=== PATIENT | male | born 1980 | race Caucasian/White ===

== ENCOUNTER 2023-05-15 09:23 | Inpatient (IN) | payer BC ==
[2023-05-12 14:34] VITALS: BMI 38.7
[2023-05-15] MEDS ORDERED: MIDAZOLAM HCL 2 MG/2 ML SINGLE DOSE VIAL ONE (10:34)
[2023-05-15] MEDS ORDERED: BUPIVACAINE HCL/PF 2.5 MG/ML - 30 ML VIAL IJ ONE (10:34)
[2023-05-15] MEDS ORDERED: SUCCINYLCHOLINE CHLORIDE 200 MG/10 ML SYRINGE ONE (10:34)
[2023-05-15] MEDS ORDERED: ROCURONIUM BROMIDE 50 MG/5 ML SYRINGE ONE ×2 (10:34→12:27)
[2023-05-15] MEDS ORDERED: PROPOFOL 40 ML ONE (10:34)
[2023-05-15] MEDS ORDERED: DEXAMETHASONE SOD PHOSPHATE/PF 10 MG/ML SDV ONE (10:45)
[2023-05-15] MEDS ORDERED: ROPIVACAINE HCL 0.5% 30ML VIAL ONE (10:45)
[2023-05-15] MEDS ORDERED: ceFAZolin SODIUM 1 GM VIAL ONE (11:10)
[2023-05-15] MEDS ORDERED: DEXAMETHASONE SOD PHOSPHATE 4 MG/1 ML VIAL ONE (11:10)
[2023-05-15] MEDS ORDERED: ACETAMINOPHEN 325 MG TABLET (FP) PO PRN (12:40)
[2023-05-15] MEDS ORDERED: oxyCODONE HCL 5 MG TABLET PO PRN ×2 (12:40)
[2023-05-15] MEDS ORDERED: ONDANSETRON 4 MG/2 ML VIAL IVPUSH PRN ×2 (12:40→13:12)
[2023-05-15] MEDS ORDERED: ACETAMINOPHEN INJECTION 100 ML IVPB ONE (12:41)
[2023-05-15] MEDS ORDERED: SUGAMMADEX SODIUM 200 MG/2 ML VIAL ONE (12:52)
[2023-05-15] MEDS ORDERED: HYDROmorphone HCl 2 MG/ML VIAL IVPB PRN ×2 (13:17→13:18)
[2023-05-15] MEDS ORDERED: FENTANYL CITRATE/PF 50 MCG/ML VIAL ONE ×3 (13:34→14:31)
[2023-05-15] MEDS ORDERED: FAMOTIDINE 20 MG/50 ML IVPB 20 MG/50 ML MG IVPB ONE (13:34)
[2023-05-15] MEDS ORDERED: FAMOTIDINE 20 MG PREMIXED IVPB IVPB ONE (13:45)
[2023-05-15] MEDS: METOCLOPRAMIDE HCL INJECTION 10 MG/2 ML VIAL IVPUSH SCH ×2 (13:50→20:18)
[2023-05-15] MEDS ORDERED: ONDANSETRON 4 MG/2 ML VIAL ONE (14:31)
[2023-05-15 14:54] LABS: HEMATOCRIT 46.6 % (35.4-49); HEMOGLOBIN 15.8 G/dL (11.7-16.9); MCH 28.7 pg (25.7-33.7); MCHC 33.9 g/dl (32.0-35.9); MEAN CELL VOLUME 84.9 fl (80-96); MEAN PLT VOLUME 10.8 fl (7.5-11.1); PLATELET COUNT 142.9 10^3/uL (134-434); RBC 5.49 10^6/uL (4.00-5.60); WHITE BLOOD COUNT 11.1 10^3/uL (4.0-10.8)
[2023-05-15 15:07] LABS: ALBUMIN 4.5 g/dl (3.4-5.0); BILIRUBIN,TOTAL 0.3 mg/dl (0.2-1); CALCIUM 9.2 mg/dl (8.5-10.1); CREATININE 0.8 mg/dl (0.6-1.3); POTASSIUM 4.1 mmol/L (3.5-5.1); TOT PROT 6.7 g/dl (6.4-8.2)
[2023-05-15] MEDS: FAMOTIDINE 20 MG/50 ML IVPB 20 MG/50 ML MG IVPB SCH (21:47)
[2023-05-15 22:11] LABS: HEMATOCRIT 43.9 % (35.4-49); HEMOGLOBIN 14.9 G/dL (11.7-16.9); MCH 28.7 pg (25.7-33.7); MCHC 33.9 g/dl (32.0-35.9); MEAN CELL VOLUME 84.6 fl (80-96); MEAN PLT VOLUME 10.7 fl (7.5-11.1); PLATELET COUNT 164.3 10^3/uL (134-434); RBC 5.19 10^6/uL (4.00-5.60); RDW 14.2 % (11.9-15.9); WHITE BLOOD COUNT 13.6 10^3/uL (4.0-10.8)
[2023-05-15 22:36] LABS: ALBUMIN 4.2 g/dl (3.4-5.0); BILIRUBIN,TOTAL 0.5 mg/dl (0.2-1); CALCIUM 8.8 mg/dl (8.5-10.1); CREATININE 0.6 mg/dl (0.6-1.3); TOT PROT 6.3 g/dl (6.4-8.2)
[2023-05-16] MEDS: METOCLOPRAMIDE HCL INJECTION 10 MG/2 ML VIAL IVPUSH SCH ×3 (02:20→14:20)
[2023-05-16 08:41] LABS: HEMATOCRIT 41.9 % (35.4-49); HEMOGLOBIN 14.2 G/dL (11.7-16.9); MCH 28.7 pg (25.7-33.7); MCHC 33.9 g/dl (32.0-35.9); MEAN CELL VOLUME 84.7 fl (80-96); MEAN PLT VOLUME 11.5 fl (7.5-11.1); PLATELET COUNT 166.6 10^3/uL (134-434); RBC 4.95 10^6/uL (4.00-5.60); RDW 14.1 % (11.9-15.9); WHITE BLOOD COUNT 12.9 10^3/uL (4.0-10.8)
[2023-05-16 09:12] VITALS: RESP 18
[2023-05-16] MEDS: SODIUM CHLORIDE 1,000 ML IV SCH ×2 (09:49→12:33)
[2023-05-16] MEDS: LACTATED RINGERS SOLUTION 1,000 ML IV SCH ×2 (09:49→12:33)
[2023-05-16] MEDS: FAMOTIDINE 20 MG/50 ML IVPB 20 MG/50 ML MG IVPB SCH (09:53)
[2023-05-16 09:57] LABS: ALBUMIN 4.1 g/dl (3.4-5.0); BILIRUBIN,TOTAL 0.6 mg/dl (0.2-1); CALCIUM 8.7 mg/dl (8.5-10.1); CREATININE 0.6 mg/dl (0.6-1.3); TOT PROT 6.2 g/dl (6.4-8.2)
[2023-05-16] MEDS ORDERED: oxyCODONE HCL 5 MG TABLET PO PRN (11:35)
[2023-05-16] MEDS ORDERED: ACETAMINOPHEN 325 MG TABLET (FP) PO PRN (11:35)
[2023-05-16] MEDS ORDERED: SODIUM CHLORIDE 1,000 ML IV SCH (11:45)
[2023-05-16 14:43] VITALS: BP 127/66; PULSE 18; TEMP 99
== END 2023-05-16 16:31 | disposition home or self-care (01) | DRG 621 ==
LOC: FM/S 09:23 → EDSTATUS 12:30 → FM/S 15:52
PROVIDERS: ADMIT Surgery; ATTEND Surgery
PROC: 0FB24ZX Excision of Left Lobe Liver, Percutaneous Endoscopic Approach, Diagnostic (ICD-10-PCS; 2023-05-15)
PROC: 0DB64Z3 Excision of Stomach, Percutaneous Endoscopic Approach, Vertical (ICD-10-PCS; principal; 2023-05-15 11:32)
DX: E66.01 Morbid (severe) obesity due to excess calories (principal); Z68.37 Body mass index [BMI] 37.0-37.9, adult; R16.0 Hepatomegaly, not elsewhere classified
CPT/HCPCS: 36415; 74240-TC-FY; 80053; 85027; 86850; 86900; 86901; 88307-TC; 94760